=== PATIENT | female | born 1960 | race Caucasian/White ===

== ENCOUNTER → 2017-03-28 | Outpatient (CLI) | payer OTHER ==
--- NOTE | 2017-03-28 09:21 | RAD ---
Indication fall one week ago. Pain. AP oblique and lateral views of the left ankle were obtained. No prior imaging of the ankle is available. There is a traumatic, acute, nondisplaced oblique fracture of the lateral malleolus. There is soft tissue swelling. IMPRESSION: Nondisplaced oblique lateral malleolar fracture
== END | disposition home or self-care (01) ==
LOC: DXRADRC 09:08
PROVIDERS: ATTEND Physician Assistant Medical
DX: S82.65XA Nondisplaced fracture of lateral malleolus of left fibula, initial encounter for closed fracture (principal); W01.0XXA Fall on same level from slipping, tripping and stumbling without subsequent striking against object, initial encounter; Y93.89 Activity, other specified; Y92.89 Other specified places as the place of occurrence of the external cause; Y99.8 Other external cause status
CPT/HCPCS: 73610

== ENCOUNTER → 2017-05-02 | Outpatient (CLI) | payer OTHER ==
--- NOTE | 2017-05-02 13:27 | RAD ---
3 views left ankle 05/02/2017 2:00 AM Indication: FOLLOW UP LT ANKLE FRACTURE IN MARCH Comparison: Ankle radiographs March 28, 2017 Findings: Redemonstration of the distal fibular fracture. A small joint effusion and edema persist. Some callus formation appears to be present on oblique view. There is possible mild widening of the medial clear space and lateral clear space.. Correlate with clinical evidence of instability or ligamentous injury. Fracture line still visible on lateral view. No new fracture or dislocation is identified. Impression: 1. Interval partial healing of the distal left fibular fracture 2. Possible mild widening of the medial lateral clear space. Correlate with evidence of ligamentous injury or instability.
== END | disposition home or self-care (01) ==
LOC: DXRAD 10:45
PROVIDERS: ATTEND Physician Assistant Medical
DX: S82.492D Other fracture of shaft of left fibula, subsequent encounter for closed fracture with routine healing (principal); X58.XXXD Exposure to other specified factors, subsequent encounter
CPT/HCPCS: 73610

== ENCOUNTER → 2020-08-02 | Outpatient (CLI) | payer OTHER ==
--- NOTE | 2020-08-02 18:27 | RAD ---
PROCEDURE: XR EXAM OF ANKLE_RIGHT 3VIEWS, XR FOOT_RIGHT 3 VIEWS STUDY DATE: 08/02/2020 CLINICAL INDICATION / HISTORY: Reason: FOOT AND ANKLE PAIN / Spl. Instructions: / History: . TECHNIQUE: AP, lateral and oblique views of the right foot. COMPARISON: Right ankle x-rays same day. FINDINGS: No fracture or dislocation is identified in the forefoot. Incidental note is made of fixati on of the distal fibular fracture. The bone density is normal. There are osteophytic spurs and joint space narrowing present at the tibiotalar joint and at the tarsometatarsal joints of the first digit compatible with degenerative changes. There is minimal ankle soft tissue swelling present anteriorly. IMPRESSION: Mild ankle soft tissue swelling and degenerative changes in the forefoot and at the tibio talar joint. No fracture or malalignment shown in the right foot. However see report on right ankle x -rays same day. PROCEDURE: XR EXAM OF ANKLE_RIGHT 3VIEWS STUDY DATE: 08/02/2020 CLINICAL INDICATION / HISTORY: Reason: FOOT AND ANKLE PAIN / Spl. Instructions: / History: . TECHNIQUE: Left ankle 3 views. COMPARISON: Right ankle x-rays of 06/15/2020 FINDINGS: Interval lateral plate and screw construct fixation of the distal lateral malleolus fracture is seen in good alignment. There is lucency at the medial talar dome compatible with an osteochondral lesion, similar to prior. Circumscribed ossific density distal to the medial malleolus is unchanged, compatible with an old fra cture or unfused secondary ossification center. Soft tissues show mild swelling over the hardware in the anterior ankle, improved from prior. Degener ative changes at the tibiotalar joint are also noted, similar to prior. IMPRESSION: Interval lateral plate and screw construct fixation of the distal fibular fracture with i mproved alignment and improvement in soft tissue swelling but residual tibiotalar degenerative change and osteochondral lesion on the medial talar dome. Electronically signed by: Rianna Michel MD (08/02/2020 6:25 PM) [id number]
== END ==
LOC: RAD 14:31
PROVIDERS: ATTEND Physician Assistant
DX: M19.071 Primary osteoarthritis, right ankle and foot (principal); M79.89 Other specified soft tissue disorders; Z98.890 Other specified postprocedural states
CPT/HCPCS: 73610; 73630

== ENCOUNTER → 2020-08-30 | Outpatient (CLI) | payer OTHER ==
--- NOTE | 2020-08-30 14:23 | RAD ---
XR EXAM OF ANKLE_RIGHT 3VIEWS History: Reason: FOLLOW UP RT ANKLE FRACTURE / Spl. Instructions: / History: Comparison: 08/02/2020, 06/15/2020 Technique: 3 views of the right ankle FINDINGS/ IMPRESSION: Normal mineralization. Redemonstrated lateral plate and screw fixation of the distal fibula. Ankle mo rtise is symmetric. Irregularity medial talar dome measuring approximately 1 cm transverse concerning for osteochondral injury. Well-corticated ossific density at the medial malleolus or tip consistent with sequela of old trauma. Small Achilles insertion and plantar calcaneal enthesophytes. Degenerativ e changes at the midfoot. Mild diffuse ankle soft tissue swelling. Electronically signed by: Zachary Rehman MD (08/30/2020 2:21 PM) [facility]
== END ==
LOC: DXRAD 14:02
PROVIDERS: ATTEND Physician Assistant
DX: S82.61XD Displaced fracture of lateral malleolus of right fibula, subsequent encounter for closed fracture with routine healing (principal); M19.071 Primary osteoarthritis, right ankle and foot; M77.31 Calcaneal spur, right foot; M79.89 Other specified soft tissue disorders; X58.XXXD Exposure to other specified factors, subsequent encounter
CPT/HCPCS: 73610

== ENCOUNTER → 2021-03-18 | Outpatient (CLI) | payer OTHER ==
--- NOTE | 2021-03-18 09:57 | RAD ---
Site ID: [id number] EXAMINATION: XR KNEE 3 VIEWS_RT. HISTORY: 61 years Female Reason: RIGHT KNEE PAIN COMPARISON: None. FINDINGS: No fracture, dislocation or radiopaque foreign body. There is mild joint space narrowing in the me dial compartment and prominent medial osteophytes. Very minimal osteophytes seen in the lateral and p atellofemoral compartments. 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 Electronically signed by: Bhargav Marques MD (03/18/2021 9:55 AM) [id number]
== END ==
LOC: LAB 14:23
PROVIDERS: ATTEND Nurse Practitioner Family
DX: M17.11 Unilateral primary osteoarthritis, right knee (principal); M25.761 Osteophyte, right knee; M25.861 Other specified joint disorders, right knee
CPT/HCPCS: 73562